=== PATIENT | male | born 1940 | race Two or more races ===

== ENCOUNTER 2019-10-13 11:25 | Inpatient (IN) | payer OTHER ==
[~2019-10-13] VITALS: Ht 170.2 cm; Wt 66.2 kg
[2019-11-03] MEDS ORDERED: NORVASC5 MG PO (14:12)
[2019-11-03] MEDS ORDERED: COZAAR100 MG PO (14:12)
[2019-11-03] MEDS ORDERED: ZOCOR20 MG PO (14:13)
[2019-11-03] MEDS ORDERED: [UNRECOGNIZED DRUG - OTHER] (14:13)
[2019-11-03] MEDS ORDERED: LORAT PO (14:14)
[2019-11-03] MEDS ORDERED: GABAPENTI PO (14:14)
[2019-11-03] MEDS ORDERED: PEPCID PO (14:15)
[2019-11-03] MEDS ORDERED: VITAMIN D (14:15)
[2019-11-03] MEDS ORDERED: VITAMIN C100 MG PO (14:15)
[2019-11-08] MEDS ORDERED: GABAPENTIN300 M2 (07:59)
[2019-11-08] MEDS ORDERED: VITAMIN D325 MC1 (07:59)
[2019-11-08] MEDS ORDERED: LORATADINE10 MG PO (08:00)
[2019-11-08] MEDS ORDERED: PEPCID AC10 MG PO (08:00)
[2019-11-08] MEDS ORDERED: GABAPENTIN800 M1 PO (08:01)
[2019-11-08] MEDS ORDERED: ZANAFLEX4 MG PO (08:01)
[2019-11-11] MEDS ORDERED: OXYC1TAB9 PO (12:26)
[2019-11-11] MEDS ORDERED: LEVSIN/SL0.125 MG SL (12:27)
[2019-11-11] MEDS ORDERED: INTESTINEX680 M1 PO (12:27)
== END 2019-11-11 13:06 | disposition home or self-care (01) | DRG 331 ==
LOC: ADM 11-03 11:30 → EDSTATUS 11-03 11:30 → O/R 11-08 05:50 → SURH 11-08 10:26
PROVIDERS: ADMIT Surgery; ATTEND Surgery
PROC: 07TB4ZZ Resection of Mesenteric Lymphatic, Percutaneous Endoscopic Approach (ICD-10-PCS; 2019-11-08)
PROC: 0DTF4ZZ Resection of Right Large Intestine, Percutaneous Endoscopic Approach (ICD-10-PCS; principal; 2019-11-08 13:45)
DX: D12.2 Benign neoplasm of ascending colon (principal); R59.0 Localized enlarged lymph nodes; I11.9 Hypertensive heart disease without heart failure